=== PATIENT | female | born 1965 | race Caucasian/White ===

== ENCOUNTER 2018-11-17 19:25 | Emergency (ER) | payer SELFPAY ==
[2018-11-17] MEDS ORDERED: Rocuronium 100 MG/10 ML MDV IV ONE (19:26)
[2018-11-17] MEDS ORDERED: Lidocaine 2% 100 MG/5 ML Syringe IVPUSH ONE (19:26)
[2018-11-17] MEDS ORDERED: Propofol 200 MG/20 ML SDV IV ONE (19:26)
[2018-11-17] MEDS ORDERED: Albuterol/Ipratropium 3.0-0.5 MG/3 ML Neb Soln NEB ONE (19:40)
[2018-11-17] MEDS ORDERED: Albuterol/Ipratropium 3.0-0.5 MG/3 ML Neb Soln ONE (19:53)
[2018-11-17] MEDS ORDERED: methylPREDNISolone Sodium Succinate 125 MG/2 ML SDV IVPUSH ONE (20:01)
--- NOTE | 2018-11-17 20:04 | EDM.PDOC ---
ED HPI GENERAL MEDICAL PROBLEM - General Stated Complaint: SOB Time Seen by Provider: 11/17/18 19:59 Source of Information: Reports: Patient History Limitations: Reports: No Limitations - History of Present Illness INITIAL COMMENTS - FREE TEXT/NARRATIVE: c/o sob lives with grandson locally for past yr, not seen a local doc, not on meds says she has COPD and htn, that she "borrows" meds from her family, borrows there inhaler sob all day, lightheaded and fell earlier but no LOC PO 70-80s when EMS arrived with good AE and no wheezing alert altho somewhat combative and argumentative in ED, it took a lot of persuasion to get her cooperation bedside u/s showed a dilated IVC, no dilated RV, LV global hypokinesis, no pericardial effusion placed on BIPAP with PO 85% on 100% O2 dose have a slight swell and ecchymosis of L forehead and EMS called a stroke alert prior arrival at ED Lars from anesthesia at bedside and assisting with her care Headache Pain Score (Numeric/FACES): 7 - Related Data Allergies Allergy/AdvReac Type Severity Reaction Status Date / Time No Known Allergies Allergy Verified 11/17/18 19:58 Social & Family History - Tobacco Use Smoking Status *Q: Current Every Day Smoker Years of Tobacco use: 18 Packs/Tins Daily: 1 - Recreational Drug Use Recreational Drug Use: No ED ROS GENERAL - Review of Systems Review Of Systems: See Below Constitutional: Reports: No Symptoms HEENT: Reports: No Symptoms Respiratory: Reports: Shortness of Breath Cardiovascular: Reports: Blood Pressure Problem. Denies: Chest Pain, Edema, Palpitations Endocrine: Reports: No Symptoms GI/Abdominal: Reports: No Symptoms : Reports: No Symptoms Musculoskeletal: Reports: No Symptoms Skin: Reports: No Symptoms Neurological: Reports: No Symptoms Psychiatric: Reports: No Symptoms Hematologic/Lymphatic: Reports: No Symptoms Immunologic: Reports: No Symptoms ED EXAM, GENERAL - Physical Exam Exam: See Below Exam Limited By: No Limitations General Appearance: Alert, WD/WN, Moderate Distress Eye Exam: Bilateral Eye: PERRL Ears: Normal External Exam, Hearing Grossly Normal Nose: Normal Inspection, Normal Mucosa, No Blood Throat/Mouth: Normal Inspection, Normal Lips, Normal Gums, Normal Oropharynx, Normal Voice, No Airway Compromise, Other Head: Other (3 x 3 x 0.5 cm area swell and slight tender at L forehead, no bony tender) Neck: Normal Inspection, Supple, Non-Tender, Full Range of Motion. No: Lymphadenopathy (R), Lymphadenopathy (L) Respiratory/Chest: Other (talk 8-word sentences, no cough, moderate dyspnea, leaning forward, using accesory muscles, no retactions, purse lips) Cardiovascular: Other (mild tachy, trace pretib edema b/l, symmetric, 2/6 SHERYL at LSB) GI/Abdominal: Soft, Non-Tender, No Distention Back Exam: Normal Inspection Extremities: Normal Inspection, Normal Range of Motion, Non-Tender Neurological: Alert, Oriented, CN II-XII Intact, Normal Cognition, No Motor/ Sensory Deficits Psychiatric: Anxious Skin Exam: Warm, Dry, Intact, Normal Color, No Rash Lymphatic: No Adenopathy Course - Vital Signs Last Recorded V/S: Last Vital Signs Temp Pulse Resp BP Pulse Ox 77 L 11/17/18 19:25 - Orders/Labs/Meds Orders: Active Orders 24 hr Category Date Time Status EKG Documentation Completion [RC] ASDIRECTED Care 11/17/18 19:39 Ordered RT Aerosol Therapy [RC] ASDIRECTED Care 11/17/18 19:40 Active Chest 1V Frontal [CR] Stat Exams 11/17/18 21:05 Ordered Chest wo Cont [CT] Stat Exams 11/17/18 20:54 Ordered Head wo Cont [CT] Stat Exams 11/17/18 20:15 Ordered CULTURE BLOOD [BC] Urgent Lab 11/17/18 20:11 Ordered CULTURE BLOOD [BC] Urgent Lab 11/17/18 20:11 Ordered Sodium Chloride 0.9% [Normal Saline] 1,000 ml Med 11/17/18 20:15 Ordered IV ASDIRECTED Blood Culture x2 Reflex Set [OM.PC] Urgent Oth 11/17/18 20:11 Ordered EKG 12 Lead [EK] Routine Ther 11/17/18 19:38 Ordered Medication Orders Sodium Chloride (Normal Saline) 1,000 mls @ 999 mls/hr IV ASDIRECTED MIRELA Last Admin: 11/17/18 20:18 Dose: 999 mls/hr Labs: Laboratory Tests 11/17/18 11/17/18 11/17/18 Range/Units 19:45 19:45 19:45 WBC 13.2 H (4.5-12.0) X10-3/uL RBC 4.94 (3.23-5.20) x10(6)uL Hgb 14.7 (11.5-15.5) g/dL Hct 44.7 (30.0-51.3) % MCV 90.6 (80-96) fL MCH 29.8 (27.7-33.6) pg MCHC 32.9 (32.2-35.4) g/dL RDW 13.5 (11.5-15.5) % Plt Count 230 (125-369) X10(3)uL MPV 8.4 (7.4-10.4) fL Neut % (Auto) 82.7 H (46-82) % Lymph % (Auto) 12.1 L (13-37) % [place] % (Auto) 4.8 (4-12) % Eos % (Auto) 0 L (1.0-5.0) % Baso % (Auto) 0 (0-2) % Neut # (Auto) 11.0 H (1.6-8.3) # Lymph # (Auto) 1.6 (0.6-5.0) # [place] # (Auto) 0.6 (0.0-1.3) # Eos # (Auto) 0.0 (0.0-0.8) # Baso # (Auto) 0.0 (0.0-0.2) # D-Dimer, Quantitative 2.47 H (0.0-0.59) mg/LFEU POC VBG pH (7.31-7.41) POC VBG pCO2 (41-51) mmHG POC VBG HCO3 (23-28) mmol/L POC VBG Total CO2 (24-29) mmol/L POC VBG Base Excess (-2-3) mmol/L Sodium 137 (135-145) mmol/L Potassium 4.4 (3.5-5.3) mmol/L Chloride 100 (100-110) mmol/L Carbon Dioxide 21 (21-32) mmol/L BUN 22 H (7-18) mg/dL Creatinine 1.5 H (0.55-1.02) mg/dL Est Cr Clr Drug Dosing TNP Estimated GFR (MDRD) 37 L (>60) BUN/Creatinine Ratio 14.7 (9-20) Glucose 152 H (80-116) mg/dL Lactic Acid (0.4-2.2) mmol/L Calcium 9.4 (8.6-10.2) mg/dL Total Bilirubin 0.4 (0.1-1.3) mg/dL AST 30 H (5-25) IU/L ALT 21 (12-36) U/L Alkaline Phosphatase 35 L (56-112) IU/L Troponin I (<0.017-0.056) ng/mL C-Reactive Protein (0.5-0.9) mg/dL NT-Pro-B Natriuret Pep (<=125) pg/mL Total Protein 8.3 H (6.0-8.0) g/dL Albumin 3.7 (3.5-5.2) g/dL Globulin 4.6 g/dL Albumin/Globulin Ratio 0.8 11/17/18 11/17/18 11/17/18 Range/Units 19:45 19:45 19:45 WBC (4.5-12.0) X10-3/uL RBC (3.23-5.20) x10(6)uL Hgb (11.5-15.5) g/dL Hct (30.0-51.3) % MCV (80-96) fL MCH (27.7-33.6) pg MCHC (32.2-35.4) g/dL RDW (11.5-15.5) % Plt Count (125-369) X10(3)uL MPV (7.4-10.4) fL Neut % (Auto) (46-82) % Lymph % (Auto) (13-37) % [place] % (Auto) (4-12) % Eos % (Auto) (1.0-5.0) % Baso % (Auto) (0-2) % Neut # (Auto) (1.6-8.3) # Lymph # (Auto) (0.6-5.0) # [place] # (Auto) (0.0-1.3) # Eos # (Auto) (0.0-0.8) # Baso # (Auto) (0.0-0.2) # D-Dimer, Quantitative (0.0-0.59) mg/LFEU POC VBG pH (7.31-7.41) POC VBG pCO2 (41-51) mmHG POC VBG HCO3 (23-28) mmol/L POC VBG Total CO2 (24-29) mmol/L POC VBG Base Excess (-2-3) mmol/L Sodium (135-145) mmol/L Potassium (3.5-5.3) mmol/L Chloride (100-110) mmol/L Carbon Dioxide (21-32) mmol/L BUN (7-18) mg/dL Creatinine (0.55-1.02) mg/dL Est Cr Clr Drug Dosing Estimated GFR (MDRD) (>60) BUN/Creatinine Ratio (9-20) Glucose (80-116) mg/dL Lactic Acid 3.7 H (0.4-2.2) mmol/L Calcium (8.6-10.2) mg/dL Total Bilirubin (0.1-1.3) mg/dL AST (5-25) IU/L ALT (12-36) U/L Alkaline Phosphatase (56-112) IU/L Troponin I 4.970 H* (<0.017-0.056) ng/mL C-Reactive Protein 5.4 H* (0.5-0.9) mg/dL NT-Pro-B Natriuret Pep 1642 H* (<=125) pg/mL Total Protein (6.0-8.0) g/dL Albumin (3.5-5.2) g/dL Globulin g/dL Albumin/Globulin Ratio 11/17/19 Range/Units 19:53 WBC (4.5-12.0) X10-3/uL RBC (3.23-5.20) x10(6)uL Hgb (11.5-15.5) g/dL Hct (30.0-51.3) % MCV (80-96) fL MCH (27.7-33.6) pg MCHC (32.2-35.4) g/dL RDW (11.5-15.5) % Plt Count (125-369) X10(3)uL MPV (7.4-10.4) fL Neut % (Auto) (46-82) % Lymph % (Auto) (13-37) % [place] % (Auto) (4-12) % Eos % (Auto) (1.0-5.0) % Baso % (Auto) (0-2) % Neut # (Auto) (1.6-8.3) # Lymph # (Auto) (0.6-5.0) # [place] # (Auto) (0.0-1.3) # Eos # (Auto) (0.0-0.8) # Baso # (Auto) (0.0-0.2) # D-Dimer, Quantitative (0.0-0.59) mg/LFEU POC VBG pH 7.29 L (7.31-7.41) POC VBG pCO2 39.5 L (41-51) mmHG POC VBG HCO3 19.0 L (23-28) mmol/L POC VBG Total CO2 20 L (24-29) mmol/L POC VBG Base Excess -8 L (-2-3) mmol/L Sodium (135-145) mmol/L Potassium (3.5-5.3) mmol/L Chloride (100-110) mmol/L Carbon Dioxide (21-32) mmol/L BUN (7-18) mg/dL Creatinine (0.55-1.02) mg/dL Est Cr Clr Drug Dosing Estimated GFR (MDRD) (>60) BUN/Creatinine Ratio (9-20) Glucose (80-116) mg/dL Lactic Acid (0.4-2.2) mmol/L Calcium (8.6-10.2) mg/dL Total Bilirubin (0.1-1.3) mg/dL AST (5-25) IU/L ALT (12-36) U/L Alkaline Phosphatase (56-112) IU/L Troponin I (<0.017-0.056) ng/mL C-Reactive Protein (0.5-0.9) mg/dL NT-Pro-B Natriuret Pep (<=125) pg/mL Total Protein (6.0-8.0) g/dL Albumin (3.5-5.2) g/dL Globulin g/dL Albumin/Globulin Ratio Meds: Medications Generic Name Dose Route Start Last Admin Trade Name Freq PRN Reason Stop Dose Admin Sodium Chloride 1,000 mls @ 999 mls/hr 11/17/18 20:15 11/17/18 20:18 Normal Saline IV 999 mls/hr ASDIRECTED MIRELA Administration Discontinued Medications Generic Name Dose Route Start Last Admin Trade Name Lizet PRN Reason Stop Dose Admin Albuterol/Ipratropium Confirm 11/17/18 19:53 Duoneb 3.0-0.5 Mg/3 Ml Administered 11/17/18 19:54 Dose 3 ml .ROUTE .STK-MED ONE Albuterol/Ipratropium 3 ml 11/17/18 19:40 Duoneb 3.0-0.5 Mg/3 Ml NEB 11/17/18 19:41 ONETIME ONE Azithromycin 500 mg/ Sodium 250 mls @ 250 mls/hr 11/17/18 20:13 Chloride IV 11/17/18 21:12 ONETIME ONE Piperacillin Sod/Tazobactam 100 mls @ 200 mls/hr 11/17/18 20:15 11/17/18 20: 20 Sod 4.5 gm/ Sodium Chloride IV 11/17/18 20:44 200 mls/hr NOW ONE Administration Methylprednisolone Sodium Succinate 125 mg 11/17/18 20:01 11/17/18 20:15 Solu-Medrol IVPUSH 11/17/18 20:02 125 mg ONETIME ONE Administration Midazolam HCl Confirm 11/17/18 21:05 Versed 1 Mg/Ml Administered 11/17/18 21:06 Dose 2 mg .ROUTE .STK-MED ONE - Re-Assessments/Exams Free Text/Narrative Re-Assessment/Exam: 11/17/18 21:23 flight team here, family at bedside for past 20 minutes and have been updated on pt's condition (arrived a couple minutes after intubation) SBP 80 after intubation, Levophed ordered, however SBP rebounded 153 with lying pt flat PO 91% after intubation by anesthesia, PO 79% prior to intubation d/w with Dr Mchugh who accepted pt pt remains stable Departure - Departure Time of Disposition: 21:29 Disposition: DC/Tfer to Acute Hospital 02 Condition: Serious Clinical Impression: Acute respiratory failure, Respiratory acidosis, Hypoxia, Elevated troponin, Ischemic cardiomyopathy, Biventricular heart failure, Elevated C-reactive protein (CRP), Leukocytosis, Left shift, Head contusion, Acute respiratory failure with hypoxia, Chronic hypoxemic respiratory failure, Nonadministration of surgical and medical care, Dehydration, Acute renal insufficiency - Discharge Information *PRESCRIPTION DRUG MONITORING PROGRAM REVIEWED*: Not Applicable *COPY OF PRESCRIPTION DRUG MONITORING REPORT IN PATIENT MAURICIO: Not Applicable Referrals: PCP,None [Primary Care Provider] - - My Orders Last 24 Hours: My Active Orders 11/17/18 19:38 EKG 12 Lead [EK] Routine 11/17/18 19:39 EKG Documentation Completion [RC] ASDIRECTED 11/17/18 19:40 RT Aerosol Therapy [RC] ASDIRECTED 11/17/18 20:11 CULTURE BLOOD [BC] Urgent CULTURE BLOOD [BC] Urgent Blood Culture x2 Reflex Set [OM.PC] Urgent 11/17/18 20:15 Head wo Cont [CT] Stat Sodium Chloride 0.9% [Normal Saline] 1,000 ml IV ASDIRECTED 11/17/18 20:54 Chest wo Cont [CT] Stat 11/17/18 21:05 Chest 1V Frontal [CR] Stat - Assessment/Plan Last 24 Hours: My Active Orders 11/17/18 19:38 EKG 12 Lead [EK] Routine 11/17/18 19:39 EKG Documentation Completion [RC] ASDIRECTED 11/17/18 19:40 RT Aerosol Therapy [RC] ASDIRECTED 11/17/18 20:11 CULTURE BLOOD [BC] Urgent CULTURE BLOOD [BC] Urgent Blood Culture x2 Reflex Set [OM.PC] Urgent 11/17/18 20:15 Head wo Cont [CT] Stat Sodium Chloride 0.9% [Normal Saline] 1,000 ml IV ASDIRECTED 11/17/18 20:54 Chest wo Cont [CT] Stat 11/17/18 21:05 Chest 1V Frontal [CR] Stat
[2018-11-17] MEDS ORDERED: Azithromycin 500 MG in Sodium Chloride 0.9% 250 ML IV ONE (20:13)
[2018-11-17] MEDS ORDERED: Piperacillin/Tazobactam 4.5 GM in Sodium Chloride 0.9% 100 ML IV ONE (20:15)
[2018-11-17] MEDS ORDERED: Sodium Chloride 0.9% 1,000 ML IV SCH (20:15)
--- NOTE | 2018-11-17 20:28 | PCM.SN ---
- Free Text/Narrative Note: ANESTHESIA SERVICE Date: 11/17/2018 Time: 1950 to 1955 Preprocedure Dx: Severe COPD / SOB Poor Peripheral Venous Access Postprocedure Rx: Peripheral Venous Access Obtained Procedure: Peripheral Venous Access I was requested by the ED physician to obtain peripheral venous access. Multiple attempts by the nurses without success. I found a vein on the patient' s distal anterior forearm and prepped the area with an alcohol wipe X 1. Attempts X 1 with a 22 Ga. 1 In. Jelco ProtectIV Plus with advancement of the catheter easily. I flushed the catheter with 7 ml's of normal saline and applied the dressing. She tolerated this well. Jeyson Mckeon CRNA, A
[2018-11-17] MEDS ORDERED: Norepinephrine 4 MG in Dextrose 5% in Water 246 ML IV SCH ×2 (20:30)
[2018-11-17] MEDS ORDERED: Midazolam 1 MG/ML 2 ML SDV IVPUSH ONE (21:05)
[2018-11-17] MEDS ORDERED: Midazolam 1 MG/ML 2 ML SDV ONE (21:05)
--- NOTE | 2018-11-17 21:57 | PCM.SN ---
- Free Text/Narrative Note: ANESTHESIA SERVICES Date: 11/17/2018 Time: 2048 to 2058 Preprocedure Dx: Severe SOB, Hypoxia, Tachypnea and increasing respiratory failure Postprocedure Rx: Oral Intubation with Glidescope #3 I was requested by the ED physician to intubated this patient after failed attempt with BiPAP 100%. I briefly discussed with the patient about the intubation and she agreed. She is very anxious, BP 163/95, HR 102, RR 36 and SpO2 75-87%. She is currently sitting up with the H.O.B. at 90 degrees. Monitors are on, Ambu-bag ready 100% o2, oral suction ready and her last fluid intake was at 1700. I induced her with 100 mg's 2% Lidocaine plain IV, Propofol 100 mg's IV and 60 mg's of Zemuron IV. I laid her flat and proceeded to use a BMV but her SpO2 dropped into the low 70's with ventilation. I proceeded to intubated X 1 attempt using a Glidescope #3 with great visualization. I placed a #7.0 ETT to 21 cm to the lower lip and had a positive return of EtCO2. Bilateral breath sounds were heard with no gastric sound. I secured the tube. We did have a very brief drop of blood pressure into the low 80's systolic but returned quickly to above 125 systolic and remained. I did order 2mg's of Versed IV for sedation [given by the RN] and I gave another 20 mg's of Propofol IV for further sedation later. A CXR was done with the ETT in good position. I transferred care to the flight team. SAMUEL Celis CRNA
== END 2018-11-17 21:35 ==
LOC: FB.ED 19:25
DX: S00.83XA Contusion of other part of head, initial encounter (principal); J96.21 Acute and chronic respiratory failure with hypoxia; E86.0 Dehydration; E87.2 Acidosis; I25.5 Ischemic cardiomyopathy; I11.0 Hypertensive heart disease with heart failure; I50.82 Biventricular heart failure; D72.829 Elevated white blood cell count, unspecified; N17.9 Acute kidney failure, unspecified; R79.82 Elevated C-reactive protein (CRP); R79.89 Other specified abnormal findings of blood chemistry; J44.9 Chronic obstructive pulmonary disease, unspecified; F17.210 Nicotine dependence, cigarettes, uncomplicated; Y66 Nonadministration of surgical and medical care; Z79.899 Other long term (current) drug therapy; W19.XXXA Unspecified fall, initial encounter
CPT/HCPCS: 31500; 36410; 36415; 51702; 71045; 80053; 81001; 82803; 83605; 83880; 84484; 85025; 85379; 86140; 87040; 93005; 94640; 96365; 96367; 96375; 99285; J0456; J2001; J2250; J2543; J2704; J2930; J7030; J7050; J7620-GY

== ENCOUNTER 2018-12-30 18:55 | Emergency (ER) | payer MEDICAID, OTHER ==
[2018-12-30] MEDS ORDERED: Albuterol/Ipratropium 3.0-0.5 MG/3 ML Neb Soln NEB ONE (19:28)
[2018-12-30] MEDS ORDERED: HYDROmorphone 2 MG/ML SDV IM ONE (19:39)
--- NOTE | 2018-12-30 20:21 | EDM.PDOC ---
ED HPI GENERAL MEDICAL PROBLEM - General Chief Complaint: Chest Pain Stated Complaint: SOB Time Seen by Provider: 12/30/18 19:15 History Limitations: Reports: No Limitations - History of Present Illness INITIAL COMMENTS - FREE TEXT/NARRATIVE: Patient presented to ED because of chest pain,shap5/10. She took 2 NTG SL which helped with the pain. There is no associated N/V,dyspnea or diaphoresis.She recently has AMI with stent placement 2 weeks ago and is worried. 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 Endocrine/Metabolic History: Reports: Obesity/BMI 30+ - Past Surgical History Cardiovascular Surgical History: Reports: Other (See Below) Other Cardiovascular Surgeries/Procedures: heart stent. Musculoskeletal Surgical History: Reports: Other (See Below) Other Musculoskeletal Surgeries/Procedures:: "half of a knee" to the right Social & Family History - Family History Family Medical History: Noncontributory - Tobacco Use Smoking Status *Q: Current Every Day Smoker Years of Tobacco use: 15 Packs/Tins Daily: 1.5 Second Hand Smoke Exposure: No - Caffeine Use Caffeine Use: Reports: Coffee, Soda - Recreational Drug Use Recreational Drug Use: No ED ROS GENERAL - Review of Systems Review Of Systems: See Below Constitutional: Reports: No Symptoms HEENT: Reports: No Symptoms Respiratory: Reports: No Symptoms Cardiovascular: Reports: Chest Pain. Denies: Dyspnea on Exertion Endocrine: Reports: No Symptoms GI/Abdominal: Reports: No Symptoms : Reports: No Symptoms Musculoskeletal: Reports: No Symptoms Skin: Reports: No Symptoms Neurological: Reports: No Symptoms Psychiatric: Reports: No Symptoms Hematologic/Lymphatic: Reports: No Symptoms Immunologic: Reports: No Symptoms ED EXAM, GENERAL - Physical Exam Exam: See Below Exam Limited By: No Limitations General Appearance: Alert, No Apparent Distress Eye Exam: Bilateral Eye: PERRL Ears: Normal External Exam, Normal Canal Nose: Normal Inspection, Normal Mucosa, No Blood Throat/Mouth: Normal Inspection, Normal Lips, Normal Teeth Head: Atraumatic, Normocephalic Neck: Normal Inspection, Supple, Non-Tender, Full Range of Motion Respiratory/Chest: No Respiratory Distress, Lungs Clear, Normal Breath Sounds, No Accessory Muscle Use, Chest Non-Tender Cardiovascular: Normal Peripheral Pulses, Regular Rate, Rhythm, No Edema, No Gallop, No JVD, No Murmur, No Rub Neurological: Alert, Oriented, CN II-XII Intact, Normal Cognition, Normal Gait, Normal Reflexes, No Motor/Sensory Deficits Psychiatric: Normal Affect, Normal Mood Skin Exam: Warm, Intact, Normal Color, No Rash Course - Vital Signs Text/Narrative:: labs,EKG,CXR-normal duoneb x1 Last Recorded V/S: Last Vital Signs Temp Pulse 80 12/30/18 19:10 Resp 18 12/30/18 19:10 BP 158/78 H 12/30/18 19:10 Pulse Ox 100 12/30/18 19:10 - Orders/Labs/Meds Orders: Active Orders 24 hr Category Date Time Status EKG Documentation Completion [RC] ASDIRECTED Care 12/30/18 22:11 Active RT Aerosol Therapy [RC] ASDIRECTED Care 12/30/18 19:28 Active Chest 1V Frontal [CR] Stat Exams 12/30/18 19:28 Taken EKG 12 Lead [EK] Routine Ther 12/30/18 19:00 Ordered Labs: Laboratory Tests 12/30/18 12/30/18 12/30/18 Range/Units 19:35 19:35 19:35 WBC 10.2 (4.5-12.0) X10-3/uL RBC 3.81 (3.23-5.20) x10(6)uL Hgb 11.9 (11.5-15.5) g/dL Hct 34.7 D (30.0-51.3) % MCV 91.2 (80-96) fL MCH 31.3 (27.7-33.6) pg MCHC 34.3 (32.2-35.4) g/dL RDW 15.5 (11.5-15.5) % Plt Count 268 (125-369) X10(3)uL MPV 8.4 (7.4-10.4) fL Neut % (Auto) 61.6 (46-82) % Lymph % (Auto) 26.8 (13-37) % [place] % (Auto) 7.6 (4-12) % Eos % (Auto) 4 (1.0-5.0) % Baso % (Auto) 1 (0-2) % Neut # (Auto) 6.2 (1.6-8.3) # Lymph # (Auto) 2.7 (0.6-5.0) # [place] # (Auto) 0.8 (0.0-1.3) # Eos # (Auto) 0.4 (0.0-0.8) # Baso # (Auto) 0.1 (0.0-0.2) # PT 21.1 H (8.7-11.1) INR 2.20 H (0.89-1.13) Sodium 140 (135-145) mmol/L Potassium 4.1 (3.5-5.3) mmol/L Chloride 103 (100-110) mmol/L Carbon Dioxide 23 (21-32) mmol/L BUN 26 H (7-18) mg/dL Creatinine 1.1 H (0.55-1.02) mg/dL Est Cr Clr Drug Dosing TNP Estimated GFR (MDRD) 52 L (>60) BUN/Creatinine Ratio 23.6 H (9-20) Glucose 117 H (80-116) mg/dL Calcium 9.4 (8.6-10.2) mg/dL Troponin I (<0.017-0.056) ng/mL 12/30/18 Range/Units 19:35 WBC (4.5-12.0) X10-3/uL RBC (3.23-5.20) x10(6)uL Hgb (11.5-15.5) g/dL Hct (30.0-51.3) % MCV (80-96) fL MCH (27.7-33.6) pg MCHC (32.2-35.4) g/dL RDW (11.5-15.5) % Plt Count (125-369) X10(3)uL MPV (7.4-10.4) fL Neut % (Auto) (46-82) % Lymph % (Auto) (13-37) % [place] % (Auto) (4-12) % Eos % (Auto) (1.0-5.0) % Baso % (Auto) (0-2) % Neut # (Auto) (1.6-8.3) # Lymph # (Auto) (0.6-5.0) # [place] # (Auto) (0.0-1.3) # Eos # (Auto) (0.0-0.8) # Baso # (Auto) (0.0-0.2) # PT (8.7-11.1) INR (0.89-1.13) Sodium (135-145) mmol/L Potassium (3.5-5.3) mmol/L Chloride (100-110) mmol/L Carbon Dioxide (21-32) mmol/L BUN (7-18) mg/dL Creatinine (0.55-1.02) mg/dL Est Cr Clr Drug Dosing Estimated GFR (MDRD) (>60) BUN/Creatinine Ratio (9-20) Glucose (80-116) mg/dL Calcium (8.6-10.2) mg/dL Troponin I < 0.017 L (<0.017-0.056) ng/mL Meds: Medications Discontinued Medications Generic Name Dose Route Start Last Admin Trade Name Freq PRN Reason Stop Dose Admin Albuterol/Ipratropium 3 ml 12/30/18 19:28 12/30/18 20:08 Duoneb 3.0-0.5 Mg/3 Ml NEB 12/30/18 19:29 3 ml ONETIME ONE Administration Hydromorphone HCl 1 mg 12/30/18 19:39 12/30/18 20:20 Dilaudid IM 12/30/18 19:40 Not Given ONETIME ONE Departure - Departure Time of Disposition: 20:20 Disposition: Home, Self-Care 01 Condition: Good Clinical Impression: Atypical chest pain Instructions: Nonspecific Chest Pain, [id number] Referrals: Rosita Lazaro PA [Primary Care Provider] - Forms: ED Department Discharge Additional Instructions: please read discharge instructions on atypical chest pain tylenol 1000 mg every 8 hours as needed for pain and headache Follow up if symptoms persist or worsens - My Orders Last 24 Hours: My Active Orders 12/30/18 19:00 EKG 12 Lead [EK] Routine 12/30/18 19:28 RT Aerosol Therapy [RC] ASDIRECTED Chest 1V Frontal [CR] Stat 12/30/18 22:11 EKG Documentation Completion [RC] ASDIRECTED - Assessment/Plan Last 24 Hours: My Active Orders 12/30/18 19:00 EKG 12 Lead [EK] Routine 12/30/18 19:28 RT Aerosol Therapy [RC] ASDIRECTED Chest 1V Frontal [CR] Stat 12/30/18 22:11 EKG Documentation Completion [RC] ASDIRECTED
--- NOTE | 2018-12-31 09:47 | CR ---
INDICATION: Chest pain, COPD. CHEST: AP portable upright view of the chest, 12/30/18, was compared with 11/17, again revealing the heart to appear somewhat enlarged with left ventricular enlargement suggested. The aorta is tortuous with calcification minimally in the arch. Overlying EKG leads are noted. A definite active infiltrate or effusion was not identified. Evidence of exogenous obesity is seen. IMPRESSION: 1. No acute process. 2. Probable ASHD. 3. Exogenous obesity. When clinically possible, PA and lateral views of the chest may be helpful for further evaluation. MTDD
== END 2018-12-30 20:28 | disposition home or self-care (01) ==
LOC: FB.ED 18:55
DX: R07.89 Other chest pain (principal); I10 Essential (primary) hypertension; E66.9 Obesity, unspecified; F17.210 Nicotine dependence, cigarettes, uncomplicated; Z68.41 Body mass index [BMI] 40.0-44.9, adult
CPT/HCPCS: 36415; 71045; 80048; 84484; 85025; 85610; 93005; 93010; 94640; 99284; 99285-25; J7620-GY

== ENCOUNTER 2020-05-19 05:47 | Emergency (ER) | payer MEDICAID ==
[2020-05-19] MEDS ORDERED: methylPREDNISolone Sodium Succinate 125 MG/2 ML SDV IVPUSH ONE (06:25)
[2020-05-19] MEDS ORDERED: Albuterol/Ipratropium 3.0-0.5 MG/3 ML Neb Soln NEB ONE ×2 (06:25→08:00)
--- NOTE | 2020-05-19 06:31 | EDM.PDOC ---
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 h/o PE, on warfarin smokes 1/2 ppd PCP Rosita Lazaro has neb machine at home, does not use it, says her son-in-law and grandson both have asthma and use in uses Advair and alb HFA 3-4x/d PO 97% on RA no f/c/d, never tested for COVID, not had COVID vax PMH: [place], acute resp failure 2y ago (off all meds then), cigs, HF with EF 20s L anterior chest Pain Score (Numeric/FACES): 4 - Related Data Allergies Allergy/AdvReac Type Severity Reaction Status Date / Time No Known Allergies Allergy Verified 05/19/20 07:20 Home Meds: Home Meds Albuterol/Ipratropium [DuoNeb 3.0-0.5 MG/3 ML] 3 ml .XX QID #30 neb 05/19/20 [Rx] Amoxicillin/Clavulanate K [Augmentin 500-125 MG] 1 tab PO BID #14 tablet 05/19/20 [Rx] predniSONE 20 mg PO ASDIRECTED #9 tab 05/19/20 [Rx] Past Medical History Cardiovascular History: Reports: Hypertension, [place], Stents Respiratory History: Reports: 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 Endocrine/Metabolic History: Reports: Obesity/BMI 30+ - Past Surgical History Cardiovascular Surgical History: Reports: Other (See Below) Other Cardiovascular Surgeries/Procedures: heart stent. Musculoskeletal Surgical History: Reports: Other (See Below) Other Musculoskeletal Surgeries/Procedures:: "half of a knee" to the right Social & Family History - Family History Family Medical History: No Pertinent Family History - Caffeine Use Caffeine Use: Reports: Coffee, Soda ED ROS GENERAL - Review of Systems Review Of Systems: See Below Constitutional: Reports: No Symptoms HEENT: Reports: No Symptoms Respiratory: Reports: Shortness of Breath, Wheezing, Pleuritic Chest Pain, Cough Cardiovascular: Reports: No Symptoms Endocrine: Reports: No Symptoms GI/Abdominal: Reports: No Symptoms : Reports: No Symptoms Musculoskeletal: Reports: No Symptoms Skin: Reports: No Symptoms Neurological: Reports: No Symptoms Psychiatric: Reports: No Symptoms Hematologic/Lymphatic: Reports: No Symptoms Immunologic: Reports: No Symptoms ED EXAM, GENERAL - Physical Exam Exam: See Below Exam Limited By: Other (prominent central obesity) General Appearance: Alert, WD/WN, No Apparent Distress Nose: Normal Inspection Throat/Mouth: Normal Inspection, Normal Lips, Normal Voice, No Airway Compromise Head: Atraumatic, Normocephalic Neck: Normal Inspection, Supple, Non-Tender, Full Range of Motion. No: Lymphadenopathy (R), Lymphadenopathy (L) Respiratory/Chest: Other (mild dyspnea, using accessory muscles, talks in 6-8 word sentences, mild inc'd exp phase, fair AE, no rales, exp wheeze b/l, not splinting, no purse lips, o retractions) GI/Abdominal: Soft, Non-Tender, Other (inc'd adipose tissue). No: Guarding, Rebound Back Exam: Normal Inspection, Full Range of Motion, NT Extremities: Other (1+ pretib edema to knees, symmetric, turgor UEs wnl) Neurological: Alert, Oriented, CN II-XII Intact, Normal Cognition, No Motor/Sensory Deficits Psychiatric: Normal Affect, Normal Mood Skin Exam: Warm, Dry, Intact, Normal Color, No Rash Lymphatic: No Adenopathy Course - Vital Signs Last Recorded V/S: Last Vital Signs Temp 36.7 C 05/19/20 08:45 Pulse 68 05/19/20 08:45 Resp 22 H 05/19/20 08:45 BP 122/76 05/19/20 08:45 Pulse Ox 98 05/19/20 08:45 - Orders/Labs/Meds Orders: Active Orders 24 hr Category Date Time Status Chest 2V [CR] Stat Exams 05/19/20 06:19 Taken Peripheral IV Insertion Adult [OM.PC] Routine Oth 05/19/20 06:47 Ordered EKG 12 Lead [EK] Routine Ther 05/19/20 06:16 Ordered Labs: Laboratory Tests 05/19/20 05/19/20 05/19/20 Range/Units 06:10 06:10 06:10 WBC 9.0 (3.0-10.3) x10-3/uL RBC 4.08 (3.60-5.20) x10(6)uL Hgb 11.9 (11.4-15.5) g/dL Hct 36.6 (34.2-48.2) % MCV 89.6 (76.7-100.5) fL MCH 29.2 (23.9-33.9) pg MCHC 32.6 (31.9-34.8) g/dL RDW 16.1 (12.3-16.5) % Plt Count 219 (151-488) x10(3)uL MPV 10.0 (7.1-12.4) fL Neut % (Auto) 64.4 (30.8-76.2) % Lymph % (Auto) 21.0 (18.4-52.1) % [place] % (Auto) 9.3 (4.4-15.7) % Eos % (Auto) 4.3 (0.6-8.1) % Baso % (Auto) 1.0 (0.2-1.5) % Neut # (Auto) 5.8 (1.5-6.3) x10-3/uL Lymph # (Auto) 1.9 (1.0-4.4) x10-3/uL [place] # (Auto) 0.8 (0.3-1.0) x10-3/uL Eos # (Auto) 0.4 (0.0-0.8) x10-3/uL Baso # (Auto) 0.1 (0.0-0.1) x10-3/uL PT (9.0-11.1) sec INR (1.00-1.24) Sodium 139 (135-145) mmol/L Potassium 4.4 (3.5-5.3) mmol/L Chloride 103 (100-110) mmol/L Carbon Dioxide 21 (21-32) mmol/L BUN 24 H (7-18) mg/dL Creatinine 1.4 H (0.55-1.02) mg/dL Est Cr Clr Drug Dosing 35.47 mL/min Estimated GFR (MDRD) 39 L (>60) BUN/Creatinine Ratio 17.1 (9-20) Glucose 101 (80-116) mg/dL Calcium 8.5 L (8.6-10.2) mg/dL Total Bilirubin 0.4 (0.1-1.3) mg/dL AST 25 D (5-25) IU/L ALT 24 D (12-36) U/L Alkaline Phosphatase 32 L (56-112) IU/L Troponin I 24.2 (4.0-60.3) pg/mL C-Reactive Protein 2.8 H* (0.5-0.9) mg/dL NT-Pro-B Natriuret Pep 8613 H* (<=125) pg/mL Total Protein 7.2 (6.0-8.0) g/dL Albumin 3.5 (3.5-5.2) g/dL Globulin 3.7 g/dL Albumin/Globulin Ratio 1.0 05/19/20 05/19/20 Range/Units 06:10 08:10 WBC (3.0-10.3) x10-3/uL RBC (3.60-5.20) x10(6)uL Hgb (11.4-15.5) g/dL Hct (34.2-48.2) % MCV (76.7-100.5) fL MCH (23.9-33.9) pg MCHC (31.9-34.8) g/dL RDW (12.3-16.5) % Plt Count (151-488) x10(3)uL MPV (7.1-12.4) fL Neut % (Auto) (30.8-76.2) % Lymph % (Auto) (18.4-52.1) % [place] % (Auto) (4.4-15.7) % Eos % (Auto) (0.6-8.1) % Baso % (Auto) (0.2-1.5) % Neut # (Auto) (1.5-6.3) x10-3/uL Lymph # (Auto) (1.0-4.4) x10-3/uL [place] # (Auto) (0.3-1.0) x10-3/uL Eos # (Auto) (0.0-0.8) x10-3/uL Baso # (Auto) (0.0-0.1) x10-3/uL PT 20.4 H (9.0-11.1) sec INR 1.98 H (1.00-1.24) Sodium (135-145) mmol/L Potassium (3.5-5.3) mmol/L Chloride (100-110) mmol/L Carbon Dioxide (21-32) mmol/L BUN (7-18) mg/dL Creatinine (0.55-1.02) mg/dL Est Cr Clr Drug Dosing mL/min Estimated GFR (MDRD) (>60) BUN/Creatinine Ratio (9-20) Glucose (80-116) mg/dL Calcium (8.6-10.2) mg/dL Total Bilirubin (0.1-1.3) mg/dL AST (5-25) IU/L ALT (12-36) U/L Alkaline Phosphatase (56-112) IU/L Troponin I 24.2 (4.0-60.3) pg/mL C-Reactive Protein (0.5-0.9) mg/dL NT-Pro-B Natriuret Pep (<=125) pg/mL Total Protein (6.0-8.0) g/dL Albumin (3.5-5.2) g/dL Globulin g/dL Albumin/Globulin Ratio Meds: Medications Discontinued Medications Generic Name Dose Route Start Last Admin Trade Name Javadq PRN Reason Stop Dose Admin Albuterol/Ipratropium 3 ml 05/19/20 06:25 05/19/20 06:46 Albuterol/Ipratropium 3.0-0.5 Mg/3 Ml Neb Soln NEB 05/19/20 06:26 3 ml ONETIME ONE Administration Albuterol/Ipratropium 3 ml 05/19/20 08:00 05/19/20 07:58 Albuterol/Ipratropium 3.0-0.5 Mg/3 Ml Neb Soln NEB 05/19/20 08:01 3 ml ONETIME ONE Administration Methylprednisolone Sodium Succinate 125 mg 05/19/20 06:25 05/19/20 06:52 Methylprednisolone Sodium Succinate 125 Mg/2 Ml Sdv IVPUSH 05/19/20 06:26 125 mg ONETIME ONE Administration Sodium Chloride 10 ml 05/19/20 06:47 05/19/20 06:50 Sodium Chloride 0.9% 10 Ml Syringe FLUSH 10 ml ASDIRECTED PRN Administration Keep Vein Open - Re-Assessments/Exams Free Text/Narrative Re-Assessment/Exam: 05/19/20 15:59 pt given option of admission in here (bed available) to get her out of a home where she and her son-in-law smoke and to begin nebs however she said she needed to care for her 6 yo grandson and could not stay, did agree to return if she felt worse, did agree to antbx/pred/nebs appears stable from a CV perspective despite known severe ischemic CMP CxR on prelim ED with no new infiltrates, small b/l effusions, cardiomegaly, no pul ocngestion Departure - Departure Time of Disposition: 08:48 Disposition: Home, Self-Care 01 Condition: Fair Clinical Impression: COPD exacerbation - Discharge Information *PRESCRIPTION DRUG MONITORING PROGRAM REVIEWED*: Not Applicable *COPY OF PRESCRIPTION DRUG MONITORING REPORT IN PATIENT MAURICIO: Not Applicable Prescriptions: Amoxicillin/Clavulanate K [Augmentin 500-125 MG] 1 tab PO BID #14 tablet Albuterol/Ipratropium [DuoNeb 3.0-0.5 MG/3 ML] 3 ml .XX QID #30 neb predniSONE 20 mg PO ASDIRECTED #9 tab Instructions: Chronic Obstructive Pulmonary Disease Exacerbation, Chronic Obstructive Pulmonary Disease Referrals: Jeyson Raymundo MD [Primary Care Provider] - Forms: ED Department Discharge Additional Instructions: For infection, take amoxicillin/clavulanate 500/125 mg 1 tab 2 times a day for 7 days. To keep airways open, take prednisone 20 mg 2 tab today and tomorrow, then 1 tab daily for 5 days. To keep airways open, use albuterol with ipratroprium (Duoneb) in the nebulizer 4 times a day for one week. Do not use the Advair inhaler for one week. Resume the Advair inhaler in one week. Continue the albuterol inhaler 2 puffs ever 2-3 hours as needed. See Dr Raymundo in 2-3 days for further recommendations. Return to ED if you are feeling worse. Sepsis Event Note (ED) - Evaluation Sepsis Screening Result: No Definite Risk - Focused Exam Vital Signs: Vital Signs Temp Pulse Resp BP Pulse Ox 05/19/20 08:45 36.7 C 68 22 H 122/76 98 05/19/20 07:43 69 24 H 118/67 96 05/19/20 07:18 56 L 24 H 111/63 97 05/19/20 06:31 71 26 H 132/68 96 05/19/20 05:47 36.7 C 67 28 H 137/81 96 - My Orders Last 24 Hours: My Active Orders 05/19/20 06:16 EKG 12 Lead [EK] Routine 05/19/20 06:19 Chest 2V [CR] Stat 05/19/20 06:47 Peripheral IV Insertion Adult [OM.PC] Routine - Assessment/Plan Last 24 Hours: My Active Orders 05/19/20 06:16 EKG 12 Lead [EK] Routine 05/19/20 06:19 Chest 2V [CR] Stat 05/19/20 06:47 Peripheral IV Insertion Adult [OM.PC] Routine
[2020-05-19] MEDS ORDERED: Sodium Chloride 0.9% 10 ML Syringe FLUSH PRN (06:47)
--- NOTE | 2020-05-21 12:03 | CR ---
INDICATION: Shortness of breath. CHEST, TWO VIEWS: PA and lateral views of the chest were obtained 05/19/20 and compared with 12/30/18 and 11/17/18. The heart appears to be significantly increased in size compared with the previous examinations. Left ventricular enlargement is slightly more prominent. The aorta is tortuous with calcification in the arch. Bridging hyperostotic changes are noted in the mid thoracic spine of moderate to moderately severe degree. A dextroconvex scoliosis in that area is also noted. A definite active infiltrate or effusion was not identified. No definite evidence of CHF is seen. However, the upper lung field pulmonary vasculature is very slightly increased in prominence compared with the previous examination, raising the possibility of an early or mild CHF - correlate clinically. Evidence of exogenous obesity is noted. IMPRESSION: 1. ASD with progressive cardiomegaly and question of mild or early CHF, possibly with some very minimal interstitial lung edema as interstitial markings are minimally prominent. 2. DJD and minimal scoliosis thoracic spine. 3. Exogenous obesity. MTDD
== END 2020-05-19 09:20 | disposition home or self-care (01) ==
LOC: FB.ED 05:47
DX: J44.1 Chronic obstructive pulmonary disease with (acute) exacerbation (principal); I10 Essential (primary) hypertension; I25.2 Old myocardial infarction; F17.210 Nicotine dependence, cigarettes, uncomplicated; E66.9 Obesity, unspecified; Z68.42 Body mass index [BMI] 45.0-49.9, adult; Z86.711 Personal history of pulmonary embolism; Z79.01 Long term (current) use of anticoagulants; Z79.899 Other long term (current) drug therapy
CPT/HCPCS: 36415; 71046; 80053; 83880; 84484; 85025; 85610; 86140; 93005; 93010; 94640; 96374; 99283; 99285-25; J2930; J7620-GY

== ENCOUNTER 2020-08-01 13:15 | Emergency (ER) | payer MEDICAID ==
[2020-08-01] MEDS ORDERED: Albuterol/Ipratropium 3.0-0.5 MG/3 ML Neb Soln NEB STA (13:34)
[2020-08-01] MEDS ORDERED: predniSONE 20 MG Tab PO STA (13:34)
[2020-08-01] MEDS ORDERED: Morphine 4 MG/ML VIAL IM STA (13:34)
--- NOTE | 2020-08-01 13:43 | EDM.PDOC ---
ED HPI GENERAL MEDICAL PROBLEM - General Stated Complaint: CHEST PAIN Time Seen by Provider: 08/01/20 13:20 Source of Information: Reports: Patient History Limitations: Reports: No Limitations - History of Present Illness INITIAL COMMENTS - FREE TEXT/NARRATIVE: Patient presented to the ED because of 2 day history of increasing cough, dyspnea, pleuritic chest pain. The cough is mostly dry, there is no fever or chills. She took her nitro SL today but didn't help with her chest pain and and so she decoded to be seen in the clinic who subsequently referred her to the ED. 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 Musculoskeletal Surgical History: Reports: Other (See Below) Other Musculoskeletal Surgeries/Procedures:: "half of a knee" to the right Social & Family History - Family History Family Medical History: No Pertinent Family History - Caffeine Use Caffeine Use: Reports: Coffee, Soda, Tea ED ROS GENERAL - Review of Systems Review Of Systems: See Below Constitutional: Reports: No Symptoms HEENT: Reports: No Symptoms Respiratory: Reports: Shortness of Breath, Wheezing, Cough Cardiovascular: Reports: Chest Pain Endocrine: Reports: No Symptoms GI/Abdominal: Reports: No Symptoms : Reports: No Symptoms Musculoskeletal: Reports: No Symptoms Skin: Reports: No Symptoms Neurological: Reports: No Symptoms Psychiatric: Reports: No Symptoms Hematologic/Lymphatic: Reports: No Symptoms ED EXAM, GENERAL - Physical Exam Exam: See Below Exam Limited By: No Limitations General Appearance: Alert, No Apparent Distress Ears: Normal External Exam, Normal Canal Nose: Normal Inspection, Normal Mucosa, No Blood Throat/Mouth: Normal Inspection, Normal Lips, Normal Teeth Head: Atraumatic, Normocephalic Neck: Normal Inspection, Supple, Non-Tender, Full Range of Motion Respiratory/Chest: No Respiratory Distress, Lungs Clear, Rhonchi, Wheezing Cardiovascular: Normal Peripheral Pulses, Regular Rate, Rhythm, No Edema, No Gallop, No JVD, No Murmur, No Rub GI/Abdominal: Normal Bowel Sounds, Soft, Non-Tender, No Organomegaly Back Exam: Normal Inspection, Full Range of Motion Extremities: Normal Inspection, Normal Range of Motion, Non-Tender, No Pedal Edema, Normal Capillary Refill Neurological: Alert, Oriented, CN II-XII Intact, Normal Cognition #1 Interpretation EKG Date: 08/01/20 Time: 13:25 Rhythm: NSR Rate (Beats/Min): 66 [place]: Normal P-Wave: Present QRS: Normal ST-T: Normal QT: Prolonged IA/PQ Interval: 227 EKG Interpretation Comments: NSR Inferior infarct,old Course - Vital Signs Text/Narrative:: Lab/EKG/CXR result was reviewed and discussed with patient and Morphine 4 mg IM x1 Prednisone 40 mg PO x1 Duoneb INH x1 - Orders/Labs/Meds Orders: Active Orders 24 hr Category Date Time Status EKG Documentation Completion [RC] ASDIRECTED Care 08/01/20 13:33 Active RT Aerosol Therapy [RC] ASDIRECTED Care 08/01/20 13:35 Active Chest 1V Frontal [CR] Stat Exams 08/01/20 13:32 Ordered CBC WITH AUTO DIFF [HEME] Stat Lab 08/01/20 13:32 Ordered COMPREHENSIVE METABOLIC PN,CMP [CHEM] Stat Lab 08/01/20 13:32 Ordered PRO B-TYPE NATRIUR PEPT,BNPPRO [CHEM] Stat Lab 08/01/20 13:32 Ordered TROPONIN I [CHEM] Stat Lab 08/01/20 13:32 Ordered EKG 12 Lead [EK] Routine Ther 08/01/20 13:32 Ordered Meds: Medications Discontinued Medications Generic Name Dose Route Start Last Admin Trade Name Freq PRN Reason Stop Dose Admin Albuterol/Ipratropium 3 ml 08/01/20 13:34 08/01/20 13:42 Albuterol/Ipratropium 3.0-0.5 Mg/3 Ml Neb Soln NEB 08/01/20 13:35 3 ml NOW STA Administration Morphine Sulfate 4 mg 08/01/20 13:34 08/01/20 13:41 Morphine 4 Mg/Ml Vial IM 08/01/20 13:35 4 mg NOW STA Administration Prednisone 40 mg 08/01/20 13:34 08/01/20 13:41 Prednisone 20 Mg Tab PO 08/01/20 13:35 40 mg NOW STA Administration Departure - Departure Time of Disposition: 14:30 Disposition: Home, Self-Care 01 Condition: Good Clinical Impression: COPD exacerbation, Pleurisy - Discharge Information Instructions: Chronic Obstructive Pulmonary Disease, [id number], Pleurisy, [id number] Additional Instructions: Please read discharge instructions on COPD exacerbation and Pleurisy Take prednisone 40 mg daily for 5 days Zithromax 500 mg daily for 5 days Follow up as needed - My Orders Last 24 Hours: My Active Orders 08/01/20 13:32 Chest 1V Frontal [CR] Stat CBC WITH AUTO DIFF [HEME] Stat COMPREHENSIVE METABOLIC PN,CMP [CHEM] Stat PRO B-TYPE NATRIUR PEPT,BNPPRO [CHEM] Stat TROPONIN I [CHEM] Stat EKG 12 Lead [EK] Routine 08/01/20 13:33 EKG Documentation Completion [RC] ASDIRECTED 08/01/20 13:35 RT Aerosol Therapy [RC] ASDIRECTED - Assessment/Plan Last 24 Hours: My Active Orders 08/01/20 13:32 Chest 1V Frontal [CR] Stat CBC WITH AUTO DIFF [HEME] Stat COMPREHENSIVE METABOLIC PN,CMP [CHEM] Stat PRO B-TYPE NATRIUR PEPT,BNPPRO [CHEM] Stat TROPONIN I [CHEM] Stat EKG 12 Lead [EK] Routine 08/01/20 13:33 EKG Documentation Completion [RC] ASDIRECTED 08/01/20 13:35 RT Aerosol Therapy [RC] ASDIRECTED
--- NOTE | 2020-08-01 16:12 | CR ---
INDICATION: Dyspnea. CHEST ONE VIEW: AP portable upright view of the chest 08/01/20 was compared with 05/19/20 and 12/30/18. Overlying EKG leads are noted. The heart is enlarged. The aorta is tortuous with calcification in the arch. A definite active infiltrate or effusion was not identified. However, markings are somewhat prominent in the right mid to upper lung field and both lung bases, and while possibly fibrotic in nature, it would make it difficult to exclude areas of patchy bronchopneumonia. No definite evidence of CHF is seen. IMPRESSION: 1. No definite acute process but difficult to exclude areas of minimal patchy bronchopneumonia in the right mid lung field and lung bases. 2. ASHD with cardiomegaly. MTDD
== END 2020-08-01 14:50 | disposition home or self-care (01) ==
LOC: FB.ED 13:15
DX: J44.1 Chronic obstructive pulmonary disease with (acute) exacerbation (principal); R09.1 Pleurisy; I11.0 Hypertensive heart disease with heart failure; I50.9 Heart failure, unspecified; I25.2 Old myocardial infarction; E66.9 Obesity, unspecified; Z68.42 Body mass index [BMI] 45.0-49.9, adult
CPT/HCPCS: 36415; 71045; 80053; 83880; 84484; 85025; 93005; 93010; 94640; 96372; 99284; 99285-25; J2270; J7512; J7620-GY

== ENCOUNTER 2021-12-29 15:07 | Emergency (ER) | payer MEDICAID ==
[2021-12-29] MEDS ORDERED: Albuterol/Ipratropium 3.0-0.5 MG/3 ML Neb Soln INH ONE (15:08)
[2021-12-29] MEDS ORDERED: Albuterol/Ipratropium 3.0-0.5 MG/3 ML Neb Soln NEB ONE (15:37)
[2021-12-29] MEDS ORDERED: Acetaminophen 500 MG Tab PO ONE (15:45)
[2021-12-29 16:14] LABS: ESTIMATED GFR 49 mL/min (>60)
== END 2021-12-29 17:02 | disposition home or self-care (01) ==
LOC: FB.ED 15:07
DX: J98.01 Acute bronchospasm (principal); I50.9 Heart failure, unspecified; J44.9 Chronic obstructive pulmonary disease, unspecified; I25.2 Old myocardial infarction; E66.9 Obesity, unspecified; Z79.01 Long term (current) use of anticoagulants; Z79.899 Other long term (current) drug therapy
CPT/HCPCS: 36415; 80048; 84484; 93005; 94640; 99285; A9270; J7620

== ENCOUNTER 2022-08-31 12:48 | Emergency (ER) | payer MEDICAID ==
[2022-08-31] MEDS ORDERED: Aspirin 81 MG Tab.Chew PO ONE (13:17)
[2022-08-31] MEDS ORDERED: Nitroglycerin 0.4 MG Tab.SL SL ONE (13:17)
[2022-08-31] MEDS ORDERED: Sodium Chloride 0.9% 10 ML Syringe FLUSH PRN (13:19)
[2022-08-31 13:32] LABS: BASOPHILS ABSOLUTE AUTO 0.1 x10-3/uL (0.0-0.1); BASOPHILS PERCENT AUTO 1.2 % (0.2-1.5); EOSINOPHILS ABSOLUTE AUTO 0.6 x10-3/uL (0.0-0.8); EOSINOPHILS PERCENT AUTO 5.5 % (0.6-8.1); HEMATOCRIT 35.1 % (34.2-48.2); HEMOGLOBIN 11.7 g/dL (11.4-15.5); LYMPHOCYTES ABSOLUTE AUTO 2.4 x10-3/uL (1.0-4.4); LYMPHOCYTES PERCENT AUTO 23.6 % (18.4-52.1); MEAN CORPUSCULAR HEMOGLOBIN 29.7 pg (23.9-33.9); MEAN CORPUSCULAR HGB CONC 33.2 g/dL (31.9-34.8); MEAN CORPUSCULAR VOLUME 89.4 fL (76.7-100.5); MEAN PLATELET VOLUME 9.2 fL (7.1-12.4); MONOCYTES ABSOLUTE AUTO 0.8 x10-3/uL (0.3-1.0); MONOCYTES PERCENT AUTO 8.1 % (4.4-15.7); NEUTROPHILS ABSOLUTE AUTO 6.2 x10-3/uL (1.5-6.3); NEUTROPHILS PERCENT AUTO 61.6 % (30.8-76.2); PLATELET COUNT,PLT 196 x10(3)uL (151-488); RED BLOOD CELL COUNT 3.92 x10(6)uL (3.60-5.20); RED CELL DISTRIBUTION WIDTH 15.7 % (12.3-16.5); WHITE BLOOD CELL COUNT,WBC 10.1 x10-3/uL (3.0-10.3)
[2022-08-31 13:37] LABS: BLOOD UREA NITROGEN,BUN 28 mg/dL (7-18); BUN/CREATININE RATIO 23.3 (9-20); CALCIUM 9.3 mg/dL (8.6-10.2); CARBON DIOXIDE,CO2 24 mmol/L (21-32); CHLORIDE,CL 104 mmol/L (100-110); CREATININE 1.2 mg/dL (0.55-1.02); ESTIMATED GFR 54 mL/min (>60); GLUCOSE RANDOM 119 mg/dL (80-116); POTASSIUM,K 4.4 mmol/L (3.5-5.3); SODIUM,NA 140 mmol/L (135-145)
[2022-08-31 13:42] LABS: A/G RATIO 0.9; ALANINE AMINOTRANSFERASE,ALT 25 U/L (12-36); ALBUMIN 3.5 g/dL (3.5-5.2); ALKALINE PHOSPHATASE 37 IU/L (56-112); ASPARTATE AMNIOTRANSFERASE,AST 25 IU/L (5-25); BILIRUBIN TOTAL 0.4 mg/dL (0.1-1.3); PROTEIN TOTAL,TP 7.3 g/dL (6.0-8.0)
[2022-08-31 13:43] LABS: INR 1.04 (1.00-1.24); PROTHROMBIN TIME 10.7 sec (9.0-11.1); PTT,PARTIAL THROMBOPLSTIN TIME 28.5 SECONDS (24.4-33.2)
[2022-08-31 13:49] LABS: TROPONIN I 12.7 pg/mL (4.0-60.3)
[2022-08-31] MEDS ORDERED: Sodium Chloride 0.9% 1,000 ML IV SCH (14:00)
== END 2022-08-31 16:25 | disposition home or self-care (01) ==
LOC: FB.ED 12:48
DX: R07.9 Chest pain, unspecified (principal); I13.0 Hypertensive heart and chronic kidney disease with heart failure and stage 1 through stage 4 chronic kidney disease, or unspecified chronic kidney disease; N18.9 Chronic kidney disease, unspecified; I50.9 Heart failure, unspecified; E78.00 Pure hypercholesterolemia, unspecified; I25.2 Old myocardial infarction; J44.9 Chronic obstructive pulmonary disease, unspecified; E66.9 Obesity, unspecified; Z68.42 Body mass index [BMI] 45.0-49.9, adult; Z79.01 Long term (current) use of anticoagulants; Z79.899 Other long term (current) drug therapy
CPT/HCPCS: 36415; 71045; 80053; 83880; 84484; 85025; 85610; 85730; 93005; 99285; A9270

== ENCOUNTER 2023-01-10 02:52 | Emergency (ER) | payer MEDICAID ==
[2023-01-10] MEDS ORDERED: Meclizine 25 MG Tab PO ONE (02:53)
[2023-01-10] MEDS ORDERED: Prochlorperazine 10 MG/2 ML SDV IVPUSH ONE (03:07)
[2023-01-10] MEDS ORDERED: Sodium Chloride 0.9% 10 ML Syringe FLUSH PRN (03:07)
[2023-01-10] MEDS ORDERED: Ketorolac 30 MG/ML SDV IVPUSH ONE (03:07)
[2023-01-10] MEDS ORDERED: Sodium Chloride 0.9% 1,000 ML IV SCH (03:15)
[2023-01-10 03:30] LABS: BASOPHILS ABSOLUTE AUTO 0.1 x10-3/uL (0.0-0.1); BASOPHILS PERCENT AUTO 0.9 % (0.2-1.5); EOSINOPHILS ABSOLUTE AUTO 0.9 x10-3/uL (0.0-0.8); EOSINOPHILS PERCENT AUTO 8.1 % (0.6-8.1); HEMATOCRIT 35.4 % (34.2-48.2); HEMOGLOBIN 11.9 g/dL (11.4-15.5); LYMPHOCYTES ABSOLUTE AUTO 2.1 x10-3/uL (1.0-4.4); LYMPHOCYTES PERCENT AUTO 19.9 % (18.4-52.1); MEAN CORPUSCULAR HEMOGLOBIN 30.2 pg (23.9-33.9); MEAN CORPUSCULAR HGB CONC 33.6 g/dL (31.9-34.8); MONOCYTES ABSOLUTE AUTO 0.9 x10-3/uL (0.3-1.0); MONOCYTES PERCENT AUTO 8.2 % (4.4-15.7); NEUTROPHILS ABSOLUTE AUTO 6.7 x10-3/uL (1.5-6.3); NEUTROPHILS PERCENT AUTO 62.9 % (30.8-76.2); PLATELET COUNT,PLT 186 x10(3)uL (151-488); RED BLOOD CELL COUNT 3.94 x10(6)uL (3.60-5.20); RED CELL DISTRIBUTION WIDTH 15.2 % (12.3-16.5); WHITE BLOOD CELL COUNT,WBC 10.6 x10-3/uL (3.0-10.3)
[2023-01-10 03:34] LABS: BLOOD UREA NITROGEN,BUN 27 mg/dL (7-18); BUN/CREATININE RATIO 24.5 (9-20); CALCIUM 9.3 mg/dL (8.6-10.2); CARBON DIOXIDE,CO2 28 mmol/L (21-32); CHLORIDE,CL 101 mmol/L (100-110); CREATININE 1.1 mg/dL (0.55-1.02); ESTIMATED GFR 59 mL/min (>60); GLUCOSE RANDOM 121 mg/dL (80-116); POTASSIUM,K 3.8 mmol/L (3.5-5.3); SODIUM,NA 138 mmol/L (135-145)
== END 2023-01-10 04:40 | disposition home or self-care (01) ==
LOC: FB.ED 02:52
DX: R42 Dizziness and giddiness (principal); E86.0 Dehydration; I11.0 Hypertensive heart disease with heart failure; I50.9 Heart failure, unspecified; E78.00 Pure hypercholesterolemia, unspecified; I25.10 Atherosclerotic heart disease of native coronary artery without angina pectoris; I25.2 Old myocardial infarction; Z79.01 Long term (current) use of anticoagulants; E66.9 Obesity, unspecified; Z79.899 Other long term (current) drug therapy; Z68.42 Body mass index [BMI] 45.0-49.9, adult; Z20.822 Contact with and (suspected) exposure to COVID-19
CPT/HCPCS: 71045; 80048; 84484; 85025; 87635; 93005; 93010; 96361; 96374; 96375; 99283; 99285; A9270; J0780; J1885; J7030; U0002

== ENCOUNTER 2023-02-15 16:19 | Emergency (ER) | payer MEDICAID ==
[2023-02-15] MEDS ORDERED: Ondansetron 4 MG Tab.DIS PO ONE (16:20)
[2023-02-15] MEDS: Ondansetron 4 MG/2 ML SDV IVPUSH ONE (16:50)
[2023-02-15] MEDS: Sodium Chloride 0.9% 10 ML Syringe FLUSH PRN (16:53)
[2023-02-15 16:58] LABS: BASOPHILS ABSOLUTE AUTO 0.1 x10-3/uL (0.0-0.1); BASOPHILS PERCENT AUTO 0.9 % (0.2-1.5); EOSINOPHILS ABSOLUTE AUTO 0.5 x10-3/uL (0.0-0.8); EOSINOPHILS PERCENT AUTO 5.8 % (0.6-8.1); HEMATOCRIT 36.5 % (34.2-48.2); HEMOGLOBIN 12.4 g/dL (11.4-15.5); LYMPHOCYTES ABSOLUTE AUTO 1.5 x10-3/uL (1.0-4.4); LYMPHOCYTES PERCENT AUTO 17.1 % (18.4-52.1); MEAN CORPUSCULAR HEMOGLOBIN 30.3 pg (23.9-33.9); MEAN CORPUSCULAR VOLUME 89.1 fL (76.7-100.5); MONOCYTES ABSOLUTE AUTO 0.6 x10-3/uL (0.3-1.0); MONOCYTES PERCENT AUTO 6.6 % (4.4-15.7); NEUTROPHILS ABSOLUTE AUTO 6.1 x10-3/uL (1.5-6.3); NEUTROPHILS PERCENT AUTO 69.6 % (30.8-76.2); PLATELET COUNT,PLT 171 x10(3)uL (151-488); WHITE BLOOD CELL COUNT,WBC 8.8 x10-3/uL (3.0-10.3)
[2023-02-15 16:58] LABS: BASE EXCESS VENOUS,POC 3 mmol/L (-2 - 3+); PCO2 VENOUS,POC 31 mmHg (41-51); PH VENOUS,POC 7.52 pH Units (7.32-7.43)
[2023-02-15 16:59] LABS: BLOOD UREA NITROGEN,BUN 22 mg/dL (7-18); CALCIUM 9.8 mg/dL (8.6-10.2); CARBON DIOXIDE,CO2 28 mmol/L (21-32); CHLORIDE,CL 103 mmol/L (100-110); CREATININE 1.1 mg/dL (0.55-1.02); ESTIMATED GFR 59 mL/min (>60); GLUCOSE RANDOM 118 mg/dL (80-116); POTASSIUM,K 4.4 mmol/L (3.5-5.3); SODIUM,NA 141 mmol/L (135-145)
[2023-02-15] MEDS: Sodium Chloride 0.9% 500 ML IV ONE (17:00)
[2023-02-15 17:05] LABS: A/G RATIO 1.1; ALANINE AMINOTRANSFERASE,ALT 25 U/L (12-36); ALBUMIN 3.8 g/dL (3.5-5.2); ALKALINE PHOSPHATASE 30 IU/L (56-112); ASPARTATE AMNIOTRANSFERASE,AST 22 IU/L (5-25); BILIRUBIN TOTAL 0.4 mg/dL (0.1-1.3); PROTEIN TOTAL,TP 7.3 g/dL (6.0-8.0)
[2023-02-15] MEDS: Meclizine 25 MG Tab PO ONE ×2 (17:06→18:13)
[2023-02-15 17:13] LABS: TROPONIN I 11.8 pg/mL (4.0-60.3)
[2023-02-15 17:37] LABS: INFLUENZA A NAA NEGATIVE (NEGATIVE); INFLUENZA B NAA NEGATIVE (NEGATIVE)
[2023-02-15 17:38] LABS: CORONAVIRUS COVID-19 NAA NEGATIVE (NEGATIVE)
[2023-02-15] MEDS: Ondansetron 4 MG Tab.DIS PO ONE (18:52)
== END 2023-02-15 18:52 | disposition home or self-care (01) ==
LOC: FB.ED 16:19
DX: H81.4 Vertigo of central origin (principal); E78.00 Pure hypercholesterolemia, unspecified; I50.9 Heart failure, unspecified; I25.10 Atherosclerotic heart disease of native coronary artery without angina pectoris; J44.9 Chronic obstructive pulmonary disease, unspecified; Z20.822 Contact with and (suspected) exposure to COVID-19; Z79.01 Long term (current) use of anticoagulants; E66.9 Obesity, unspecified; Z68.41 Body mass index [BMI] 40.0-44.9, adult; Z79.899 Other long term (current) drug therapy
CPT/HCPCS: 0240U; 36415; 71045; 80053; 83880; 84484; 85025; 93005; 96361; 96374; 99285-25; A9270-GY; J2405; J3490; J7040; Q0162

== ENCOUNTER 2023-04-15 08:27 | Emergency (ER) | payer MEDICAID ==
[2023-04-15] MEDS ORDERED: Sodium Chloride 0.9% 10 ML Syringe FLUSH PRN (08:36)
[2023-04-15] MEDS: Morphine 4 MG/ML VIAL IVPUSH ONE (08:49)
[2023-04-15 08:57] LABS: BASOPHILS ABSOLUTE AUTO 0.1 x10-3/uL (0.0-0.1); BASOPHILS PERCENT AUTO 1.2 % (0.2-1.5); EOSINOPHILS ABSOLUTE AUTO 0.5 x10-3/uL (0.0-0.8); EOSINOPHILS PERCENT AUTO 5.7 % (0.6-8.1); HEMATOCRIT 35.6 % (34.2-48.2); HEMOGLOBIN 11.8 g/dL (11.4-15.5); LYMPHOCYTES PERCENT AUTO 33.5 % (18.4-52.1); MEAN CORPUSCULAR HEMOGLOBIN 29.5 pg (23.9-33.9); MEAN CORPUSCULAR HGB CONC 33.1 g/dL (31.9-34.8); MEAN CORPUSCULAR VOLUME 89.2 fL (76.7-100.5); MEAN PLATELET VOLUME 8.7 fL (7.1-12.4); MONOCYTES ABSOLUTE AUTO 0.8 x10-3/uL (0.3-1.0); MONOCYTES PERCENT AUTO 8.9 % (4.4-15.7); NEUTROPHILS ABSOLUTE AUTO 4.5 x10-3/uL (1.5-6.3); NEUTROPHILS PERCENT AUTO 50.7 % (30.8-76.2); PLATELET COUNT,PLT 195 x10(3)uL (151-488); RED BLOOD CELL COUNT 3.99 x10(6)uL (3.60-5.20); RED CELL DISTRIBUTION WIDTH 15.1 % (12.3-16.5)
[2023-04-15] MEDS: Aspirin 81 MG Tab.Chew PO ONE (09:00)
[2023-04-15 09:05] LABS: A/G RATIO 0.8; ALANINE AMINOTRANSFERASE,ALT 21 U/L (12-36); ALBUMIN 3.2 g/dL (3.5-5.2); ALKALINE PHOSPHATASE 29 IU/L (56-112); ASPARTATE AMNIOTRANSFERASE,AST 16 IU/L (5-25); BILIRUBIN TOTAL 0.4 mg/dL (0.1-1.3); BLOOD UREA NITROGEN,BUN 29 mg/dL (7-18); BUN/CREATININE RATIO 24.2 (9-20); CALCIUM 9.3 mg/dL (8.6-10.2); CARBON DIOXIDE,CO2 24 mmol/L (21-32); CHLORIDE,CL 102 mmol/L (100-110); CREATININE 1.2 mg/dL (0.55-1.02); EST CRCL DRUG DOSING (CG) 39.97 mL/min; ESTIMATED GFR 53 mL/min (>60); GLUCOSE RANDOM 89 mg/dL (80-116); POTASSIUM,K 4.2 mmol/L (3.5-5.3); SODIUM,NA 140 mmol/L (135-145)
[2023-04-15 09:11] LABS: INR 0.96 (1.00-1.24); TROPONIN I 10.8 pg/mL (4.0-60.3)
[2023-04-15 09:12] LABS: PTT,PARTIAL THROMBOPLSTIN TIME 31.3 SECONDS (24.4-33.2)
== END 2023-04-15 11:20 | disposition home or self-care (01) ==
LOC: FB.ED 08:27
DX: R07.9 Chest pain, unspecified (principal); I25.2 Old myocardial infarction; J44.9 Chronic obstructive pulmonary disease, unspecified; F17.210 Nicotine dependence, cigarettes, uncomplicated; Z79.899 Other long term (current) drug therapy
CPT/HCPCS: 36415; 71045; 80053; 83880; 84484; 85025; 85610; 85730; 93005; 93010; 96374; 99283; 99285-25; A9270-GY; J2270

== ENCOUNTER 2023-06-11 23:19 | Emergency (ER) | payer MEDICAID ==
[2023-06-12] MEDS: Sodium Chloride 0.9% 1,000 ML IV SCH (00:39)
[2023-06-12] MEDS: Aspirin 81 MG Tab.Chew PO STA (00:39)
[2023-06-12] MEDS: Ondansetron 4 MG/2 ML SDV IVPUSH ONE (00:39)
[2023-06-12 00:47] LABS: BASOPHILS ABSOLUTE AUTO 0.1 x10-3/uL (0.0-0.1); BASOPHILS PERCENT AUTO 0.7 % (0.2-1.5); EOSINOPHILS ABSOLUTE AUTO 0.3 x10-3/uL (0.0-0.8); EOSINOPHILS PERCENT AUTO 3.3 % (0.6-8.1); HEMATOCRIT 38.9 % (34.2-48.2); HEMOGLOBIN 12.8 g/dL (11.4-15.5); LYMPHOCYTES ABSOLUTE AUTO 1.8 x10-3/uL (1.0-4.4); LYMPHOCYTES PERCENT AUTO 19.4 % (18.4-52.1); MEAN CORPUSCULAR HEMOGLOBIN 29.3 pg (23.9-33.9); MEAN CORPUSCULAR HGB CONC 32.9 g/dL (31.9-34.8); MEAN CORPUSCULAR VOLUME 89.2 fL (76.7-100.5); MEAN PLATELET VOLUME 9.4 fL (7.1-12.4); MONOCYTES ABSOLUTE AUTO 0.7 x10-3/uL (0.3-1.0); MONOCYTES PERCENT AUTO 7.5 % (4.4-15.7); NEUTROPHILS ABSOLUTE AUTO 6.5 x10-3/uL (1.5-6.3); NEUTROPHILS PERCENT AUTO 69.1 % (30.8-76.2); PLATELET COUNT,PLT 197 x10(3)uL (151-488); RED BLOOD CELL COUNT 4.36 x10(6)uL (3.60-5.20); RED CELL DISTRIBUTION WIDTH 15.3 % (12.3-16.5); WHITE BLOOD CELL COUNT,WBC 9.4 x10-3/uL (3.0-10.3)
[2023-06-12 00:52] LABS: BLOOD UREA NITROGEN,BUN 35 mg/dL (7-18); CALCIUM 9.9 mg/dL (8.6-10.2); CARBON DIOXIDE,CO2 24 mmol/L (21-32); CHLORIDE,CL 102 mmol/L (100-110); CREATININE 1.4 mg/dL (0.55-1.02); ESTIMATED GFR 44 mL/min (>60); GLUCOSE RANDOM 154 mg/dL (80-116); POTASSIUM,K 3.6 mmol/L (3.5-5.3); SODIUM,NA 141 mmol/L (135-145)
[2023-06-12 01:03] LABS: A/G RATIO 0.9; ALANINE AMINOTRANSFERASE,ALT 24 U/L (12-36); ALBUMIN 3.7 g/dL (3.5-5.2); ALKALINE PHOSPHATASE 27 IU/L (56-112); ASPARTATE AMNIOTRANSFERASE,AST 22 IU/L (5-25); BILIRUBIN TOTAL 0.4 mg/dL (0.1-1.3); INR 0.98 (1.00-1.24); PROTEIN TOTAL,TP 7.9 g/dL (6.0-8.0); PROTHROMBIN TIME 10.2 sec (9.0-11.1); PTT,PARTIAL THROMBOPLSTIN TIME 31.9 SECONDS (24.4-33.2)
[2023-06-12 01:05] LABS: TROPONIN I 12.1 pg/mL (4.0-60.3)
[2023-06-12 01:27] LABS: BILIRUBIN,URINE NEGATIVE (NEGATIVE); GLUCOSE,URINE 250 mg/dL (NORMAL); KETONES,URINE NEGATIVE (NEGATIVE); LEUKOCYTE ESTERASE,URINE NEGATIVE (NEGATIVE); NITRITE,URINE NEGATIVE (NEGATIVE); OCCULT BLOOD,URINE NEGATIVE (NEGATIVE); PROTEIN,URINE 100 mg/dL (NEGATIVE); UROBILINOGEN,URINE NORMAL (NEGATIVE)
[2023-06-12] MEDS: Prochlorperazine 10 MG/2 ML SDV IVPUSH ONE (01:27)
[2023-06-12 01:33] LABS: APPEARANCE,URINE CLEAR (CLEAR); BACTERIA,URINE FEW (NS); COLOR,URINE YELLOW (YELLOW); RBC,URINE 0-5 (0-5); SQUAMOUS EPITHELIAL CELLS,UR FEW (NS,R,O); WBC,URINE 0-5 (0-5)
[2023-06-12] MEDS: Meclizine 25 MG Tab PO ONE (01:53)
== END 2023-06-12 03:00 | disposition home or self-care (01) ==
LOC: FB.ED 23:19
DX: K52.9 Noninfective gastroenteritis and colitis, unspecified (principal); R07.9 Chest pain, unspecified; R42 Dizziness and giddiness; I11.0 Hypertensive heart disease with heart failure; I50.9 Heart failure, unspecified; I25.2 Old myocardial infarction; I25.10 Atherosclerotic heart disease of native coronary artery without angina pectoris; J44.9 Chronic obstructive pulmonary disease, unspecified; E66.9 Obesity, unspecified; Z87.891 Personal history of nicotine dependence; Z79.899 Other long term (current) drug therapy
CPT/HCPCS: 36415; 71045; 80053; 81001; 83880; 84484; 85025; 85610; 85730; 93005; 93010; 96361; 96374; 96375; 99284; 99285; A9270; J0780; J2405; J7030

== ENCOUNTER 2023-12-19 17:39 | Emergency (ER) | payer MEDICAID ==
[2023-12-19] MEDS ORDERED: Sodium Chloride 0.9% 10 ML Syringe FLUSH PRN (17:46)
[2023-12-19 18:17] LABS: BLOOD UREA NITROGEN,BUN 25 mg/dL (7-18); BUN/CREATININE RATIO 15.6 (9-20); CALCIUM 9.4 mg/dL (8.6-10.2); CARBON DIOXIDE,CO2 24 mmol/L (21-32); CHLORIDE,CL 104 mmol/L (100-110); CREATININE 1.6 mg/dL (0.55-1.02); ESTIMATED GFR 38 mL/min (>60); GLUCOSE RANDOM 111 mg/dL (80-116); POTASSIUM,K 4.5 mmol/L (3.5-5.3); SODIUM,NA 141 mmol/L (135-145)
[2023-12-19 18:20] LABS: BASOPHILS ABSOLUTE AUTO 0.1 x10-3/uL (0.0-0.1); BASOPHILS PERCENT AUTO 0.8 % (0.2-1.5); EOSINOPHILS ABSOLUTE AUTO 0.5 x10-3/uL (0.0-0.8); EOSINOPHILS PERCENT AUTO 4.7 % (0.6-8.1); HEMATOCRIT 40.3 % (34.2-48.2); LYMPHOCYTES ABSOLUTE AUTO 2.3 x10-3/uL (1.0-4.4); LYMPHOCYTES PERCENT AUTO 22.9 % (18.4-52.1); MEAN CORPUSCULAR HEMOGLOBIN 30.5 pg (23.9-33.9); MEAN CORPUSCULAR HGB CONC 34.7 g/dL (31.9-34.8); MEAN CORPUSCULAR VOLUME 87.8 fL (76.7-100.5); MEAN PLATELET VOLUME 9.1 fL (7.1-12.4); MONOCYTES ABSOLUTE AUTO 0.9 x10-3/uL (0.3-1.0); MONOCYTES PERCENT AUTO 8.6 % (4.4-15.7); NEUTROPHILS ABSOLUTE AUTO 6.4 x10-3/uL (1.5-6.3); PLATELET COUNT,PLT 203 x10(3)uL (151-488); RED BLOOD CELL COUNT 4.59 x10(6)uL (3.60-5.20); RED CELL DISTRIBUTION WIDTH 15.5 % (12.3-16.5); WHITE BLOOD CELL COUNT,WBC 10.1 x10-3/uL (3.0-10.3)
[2023-12-19 18:22] LABS: A/G RATIO 0.9; ALANINE AMINOTRANSFERASE,ALT 28 U/L (12-36); ALBUMIN 3.7 g/dL (3.5-5.2); ALKALINE PHOSPHATASE 35 IU/L (56-112); ASPARTATE AMNIOTRANSFERASE,AST 23 IU/L (5-25); BILIRUBIN TOTAL 0.4 mg/dL (0.1-1.3); PROTEIN TOTAL,TP 7.8 g/dL (6.0-8.0)
[2023-12-19 18:27] LABS: LACTIC ACID 1.2 mmol/L (0.4-2.0)
[2023-12-19 18:30] LABS: TROPONIN I 11.8 pg/mL (4.0-60.3)
[2023-12-19] MEDS: Nitroglycerin 0.4 MG Tab.SL SL ONE (19:14)
== END 2023-12-19 19:45 | disposition home or self-care (01) ==
LOC: FB.ED 17:39
DX: I25.5 Ischemic cardiomyopathy (principal); I11.0 Hypertensive heart disease with heart failure; I50.82 Biventricular heart failure; I25.10 Atherosclerotic heart disease of native coronary artery without angina pectoris; E66.9 Obesity, unspecified; Z79.899 Other long term (current) drug therapy
CPT/HCPCS: 36415; 71045; 80053; 83605; 83735; 83880; 84484; 85025; 85379; 86140; 93005; 93010; 99284; 99285; A9270-GY

== ENCOUNTER 2024-11-21 11:56 | Emergency (ER) | payer MEDICAID ==
[2024-11-21] MEDS ORDERED: Ondansetron 4 MG Tab.DIS PO ONE (11:57)
[2024-11-21 13:36] LABS: BASOPHILS ABSOLUTE AUTO 0.1 x10-3/uL (0.0-0.1); BASOPHILS PERCENT AUTO 1.1 % (0.2-1.5); EOSINOPHILS ABSOLUTE AUTO 0.4 x10-3/uL (0.0-0.8); EOSINOPHILS PERCENT AUTO 3.5 % (0.6-8.1); LYMPHOCYTES ABSOLUTE AUTO 1.4 x10-3/uL (1.0-4.4); LYMPHOCYTES PERCENT AUTO 12.2 % (18.4-52.1); MEAN PLATELET VOLUME 8.3 fL (7.1-12.4); MONOCYTES ABSOLUTE AUTO 0.9 x10-3/uL (0.3-1.0); MONOCYTES PERCENT AUTO 7.7 % (4.4-15.7); NEUTROPHILS ABSOLUTE AUTO 8.5 x10-3/uL (1.5-6.3); NEUTROPHILS PERCENT AUTO 75.5 % (30.8-76.2); PLATELET COUNT,PLT 236 x10(3)uL (151-488); RED BLOOD CELL COUNT 4.74 x10(6)uL (3.60-5.20); RED CELL DISTRIBUTION WIDTH 17.2 % (12.3-16.5); WHITE BLOOD CELL COUNT,WBC 11.3 x10-3/uL (3.0-10.3)
[2024-11-21 13:42] LABS: BLOOD UREA NITROGEN,BUN 31 mg/dL (7-18); CARBON DIOXIDE,CO2 26 mmol/L (21-32); CHLORIDE,CL 105 mmol/L (100-110); CREATININE 1.3 mg/dL (0.55-1.02); EST CRCL DRUG DOSING (CG) 36.03 mL/min; ESTIMATED GFR 48 mL/min (>60); GLUCOSE RANDOM 112 mg/dL (80-116); POTASSIUM,K 3.4 mmol/L (3.5-5.3); SODIUM,NA 141 mmol/L (135-145)
[2024-11-21 13:48] LABS: A/G RATIO 0.9; ALANINE AMINOTRANSFERASE,ALT 22 U/L (12-36); ASPARTATE AMNIOTRANSFERASE,AST 21 IU/L (5-25); BILIRUBIN TOTAL 0.5 mg/dL (0.1-1.3); PROTEIN TOTAL,TP 7.9 g/dL (6.0-8.0)
[2024-11-21 14:43] LABS: GLUCOSE,URINE 100 mg/dL (NORMAL); OCCULT BLOOD,URINE NEGATIVE (NEGATIVE)
[2024-11-21 14:44] LABS: APPEARANCE,URINE CLEAR (CLEAR)
[2024-11-21 15:01] LABS: INFLUENZA A NAA NEGATIVE (NEGATIVE); INFLUENZA B NAA NEGATIVE (NEGATIVE); RESPIRATORY SYNCYTIAL VIR NAA NEGATIVE (NEGATIVE)
[2024-11-21 15:05] LABS: CORONAVIRUS COVID-19 NAA POSITIVE (NEGATIVE)
== END 2024-11-21 17:30 | disposition other institution (70) ==
LOC: FB.ED 11:56
DX: U07.1 COVID-19 (principal); I25.10 Atherosclerotic heart disease of native coronary artery without angina pectoris; I11.0 Hypertensive heart disease with heart failure; I50.9 Heart failure, unspecified; I25.2 Old myocardial infarction; E78.00 Pure hypercholesterolemia, unspecified; Z95.5 Presence of coronary angioplasty implant and graft; F17.200 Nicotine dependence, unspecified, uncomplicated; Z79.899 Other long term (current) drug therapy; Z79.01 Long term (current) use of anticoagulants
CPT/HCPCS: 36415; 70450; 70450-26; 71045; 71045-26; 80053; 81003; 83735; 83880; 84484; 85025; 87637; 93005; 96361; 96374; 99285-25; A9270-GY; J3360; J7040; Q0162